=== PATIENT | male | born 1960 | race Caucasian/White ===

== ENCOUNTER 2018-11-27 07:45 | Emergency (ER) | payer BC, OTHER ==
[~2018-11-27 07:45] MED LIST: EPINEPHrine 1:10,000 1 MG/10 ML Syringe IVPUSH ONE; Lactated Ringers 1,000 ML IV ONE
[2018-11-27] MEDS ORDERED: Sodium Bicarbonate 8.4% 50 MEQ/50 ML Syringe IVPUSH ONE (07:46)
[2018-11-27] MEDS ORDERED: EPINEPHrine 1:10,000 1 MG/10 ML Syringe IVPUSH ONE (07:50)
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
[2018-11-27] MEDS ORDERED: Sodium Chloride 0.9% 10 ML Syringe FLUSH PRN (08:50)
== END 2018-11-27 11:44 | disposition expired ==
LOC: LL.ED 07:45
DX: S82.202B Unspecified fracture of shaft of left tibia, initial encounter for open fracture type I or II (principal); S02.2XXA Fracture of nasal bones, initial encounter for closed fracture; S00.11XA Contusion of right eyelid and periocular area, initial encounter; S20.212A Contusion of left front wall of thorax, initial encounter; Z88.1 Allergy status to other antibiotic agents; I10 Essential (primary) hypertension; V09.9XXA Pedestrian injured in unspecified transport accident, initial encounter
CPT/HCPCS: 92950; 96374; 96375; 99285-25; G0390; J0171